=== PATIENT | female | born 1995 | race Caucasian/White ===

== ENCOUNTER 2023-01-08 10:10 | Day surgery (SDC) | payer SELFPAY ==
--- NOTE | 2023-01-06 15:34 | HP ---
DATE: 01/08/2023 HISTORY OF PRESENT ILLNESS: Patient is a 27 year-old female who presents with complaints of some bad epigastric pain. Patient went to the Emergency Room. They did an US and told her she did not have any stones. Patient also did a HIDA scan. They told her it was normal. Patient seen her family doctor. Dr. Castañeda, who then referred to us. She also stated she has been seen in [facility] as well. She states that she has a lot of nausea with eating. She says that eating red meat causes her this pain. Also, dairy/cream giving her discomfort and nausea. She also reports diarrhea. PAST MEDICAL HISTORY: Heartburn. CURRENT MEDICATIONS: vitamin, omeprazole. ALLERGIES: CODEINE. PAST SURGERIES: [place] teeth. SOCIAL HISTORY: Occasional alcohol. FAMILY HISTORY: None reported. REVIEW OF SYSTEMS: CONSTITUTIONAL: Denies fever or chills. CHEST: Denies shortness of breath. CVS: Denies chest pain. ABDOMEN: Reports abdominal pain. PHYSICAL EXAMINATION: GENERAL: No acute distress. CHEST: Nonlabored. Denies shortness of breath. CVS: Regular rate and rhythm. ABDOMEN: Soft. IMPRESSION: 1. CLINICAL CHOLELITHIASIS. PLAN: Laparoscopic cholecystectomy with Dr. Yehuda Hobson. This report was dictated for Dr. Hobson by Neelam Hayes NP.
[2023-01-08 10:25] LABS: HCG URINE TEST NEGATIVE (NEGATIVE)
[2023-01-08] MEDS ORDERED: Sensorcaine 0.25% 10 ML ONE (10:41)
[2023-01-08 10:45] VITALS: RESP 18
[2023-01-08] MEDS ORDERED: Lactated Ringers 1,000 ML IV SCH (11:00)
[2023-01-08 11:22] LABS: Absolute Neutrophil Ct (ANC) 4.03 x10^3/uL (1.4-6.9); Basophil (Absolute #) 0.03 x10^3/uL (0-0.4); Eosinophil (Absolute #) 0.31 x10^3/uL (0-0.5); Hematocrit 38.8 % (35-47); Hemoglobin 12.9 g/dL (12.0-16.0); IMMATURE GRAN # 0.06 x10^3u/L (0.00-0.03); Lymphocyte (Absolute #) 2.61 x10^3/uL (1.0-4.6); Mean Cell Volume 87.2 fL (78-100); Mean Corpuscular Hgb Concent. 33.2 g/dL (32-36); Mean Platelet Volume 10.3 fL (7.5-11.0); Monocyte (Absolute #) 0.56 x10^3/uL (0.0-1.3); Platelet Count 289 x10^3/uL (150-450); Red Blood Count 4.45 x10^6/uL (4.1-5.4); Red Cell Distribution Width 13.2 % (11.5-14.0); White Blood Count 7.6 x10^3/uL (4.0-10.5)
[2023-01-08 11:58] LABS: ALBUMIN 4.4 g/dL (3.5-5.0); ALKALINE PHOSPHATASE 64 U/L (38-126); ANION GAP 13.2 MEQ/L (5-15); BLOOD UREA NITROGEN 9 mg/dL (7-17); CHLORIDE 103 mmol/L (98-107); Calcium 8.8 mg/dL (8.4-10.2); Carbon Dioxide 28 mmol/L (22-30); Creatinine 1 0.62 mg/dL (0.52-1.04); EST GLOMERULAR FILTRATION RATE > 60.0 ML/MIN; Glucose 88 mg/dL (74-106); Potassium 4.1 mmol/L (3.5-5.1); SGOT/AST 24 U/L (14-36); SGPT/ALT 29 U/L (0-35); SODIUM 140 mmol/L (137-145); Total Protein 7.6 g/dL (6.3-8.2)
[2023-01-08] MEDS ORDERED: MEFOXIN 2 GM PREMIX** 2 GM/50 ML ML IV SCH (12:00)
[2023-01-08 12:27] LABS: Eosinophil 8 % (0.00-3.0); Lymphocytes 35 % (24-44); Monocyte 7 % (0.0-12.0); Neutrophils 50 % (36.0-66.0); Total Cells Counted 100
[2023-01-08 12:28] LABS: Platelet Estimate NORMAL (NORMAL)
[2023-01-08] MEDS ORDERED: Zemuron 100 MG/10 ML ONE (12:30)
[2023-01-08] MEDS ORDERED: DIPRIVAN 200 MG/20 ML IV ONE (12:30)
[2023-01-08] MEDS ORDERED: Versed 2 MG/2 ML Injection ONE (12:30)
[2023-01-08] MEDS ORDERED: SUBLIMAZE 100 MCG/2 ML ONE ×2 (12:30→14:07)
[2023-01-08] MEDS ORDERED: Xylocaine-Mpf 2% 5 Ml Vial ONE (12:46)
[2023-01-08] MEDS ORDERED: Decadron 4 MG INJ ONE (13:10)
[2023-01-08] MEDS ORDERED: Zofran 4 MG/2 ML VIAL ONE (13:25)
[2023-01-08] MEDS ORDERED: BRIDION 200MG/2ML IV ONE (13:25)
[2023-01-08] MEDS ORDERED: TORAdol 30 mg Injection ONE (13:25)
[2023-01-08] MEDS ORDERED: Hydromorphone 1 mg/ml Injection ONE (13:49)
--- NOTE | 2023-01-08 14:29 | OP ---
SURGERY DATE/TIME: 01/08/2023 1240 PREOPERATIVE DIAGNOSIS: Clinical cholecystitis. POSTOPERATIVE DIAGNOSIS: Clinical cholecystitis and cholesterolosis. PROCEDURE: Laparoscopic cholecystectomy. SURGEON: Dr. Yehuda Hobson. ANESTHESIA: General endotracheal tube. COMPLICATIONS: None. CONDITION: Stable. INDICATIONS: A patient with upper abdominal recurrent pain. Cholecystitis clinically. Sludge radiologically. DESCRIPTION OF PROCEDURE AND FINDINGS: Taken to surgery. General anesthetic, routine prep and drape. Veress needle inserted. Opening pressure of 1, insufflating pressure 14. Four - 5's. Good visualization. A very long gallbladder. Cystic duct defined. Cystic artery defined. Very little fat. The cautery was turned down. Cystic artery triply clipped. Cystic duct triply clipped. Gallbladder rolled out of gallbladder fossa. Gallbladder was delivered through the upper abdominal port with just a small amount of widening. Hole closure needle only was used with 3-0 Vicryl. Skin closed with 4-0 Vicryl and Steri-Strips. The patient tolerated the procedure satisfactorily.
[2023-01-08 14:32] VITALS: TEMP 96.9
[2023-01-08 14:52] VITALS: PULSE 62
[2023-01-08 15:11] VITALS: BP 107/68; O2SAT 98
== END 2023-01-08 15:10 | disposition home or self-care (01) ==
LOC: SDC 10:10
PROVIDERS: ATTEND Surgery
DX: K81.9 Cholecystitis, unspecified (principal)
CPT/HCPCS: 36415; 80053; 81025; 85025; J0694; J1100; J1170; J1885; J2250; J2405; J2704; J3010